=== PATIENT | female | born 1985 | race African-American/Black ===

== ENCOUNTER 2018-02-11 02:08 | Emergency (ER) | payer SELFPAY ==
[2018-02-11] MEDS ORDERED: predniSONE 20 MG TAB ONE (02:30)
== END 2018-02-11 02:34 | disposition home or self-care (01) ==
LOC: ERS 02:08
DX: L50.0 Allergic urticaria (principal); F41.9 Anxiety disorder, unspecified; F32.9 Major depressive disorder, single episode, unspecified; F43.10 Post-traumatic stress disorder, unspecified
CPT/HCPCS: 99282; J7506